=== PATIENT | male | born 1980 | race Caucasian/White ===

== ENCOUNTER 2022-07-17 08:58 | Emergency (ER) | payer OTHER ==
--- OUTSIDE RECORDS SUMMARY | 2022-07-17 09:02 | XMS REPORT | Continuity of Care Document ---
:1980 Author Organization [facility] t Address [address] [place] [address] Care Team Providers Name Role Phone [id number] A Primary Care Physician Unavailable Doctor Unassigned, [place] Attending Clinician Unavailable Grecia HODGE Attending Clinician Unavailable Grecia Weller Attending Clinician Megan Ordonez Attending Clinician MEGAN SALAS Attending Clinician Unavailable Jose Frank MD Attending Clinician JOSE FRANK Attending Clinician Unavailable RENETTA KELLEY Attending Clinician Unavailable Renetta Hopper Attending Clinician RENETTA KELLEY Admitting Clinician Unavailable Payers Payer Name Policy Type Policy Number Effective Date Expiration Date S ource Problems Condition Condition Condition Status Onset Resolution Last Treating Co mments Source Name Details Category Date Date Treatment Clinician Date Vision Vision Disease Active 2018-06 Univers loss of loss of 0-07 [place] of right [place] 00[place] [facility] Allergies, Adverse Reactions, Alerts Allergy Allergy Status Severity Reaction(s) Onset Inactive Treating Comm ents Source Name Type Date Date Clinician NO KNOWN Drug Active Univers ALLERGIE Class ity of S [facility] Social History Social Habit Start Date Stop Date Quantity Comments Source History [facility] o f Alcohol Frequency [facility] History [facility] o f Alcohol Std Drinks [facility] History [facility] o f Alcohol Binge [place] [facility] Exposure to Not sure [facility] SARS-CoV-2 (event) [facility] Tobacco use and 2020-10-14 2020-10-14 Never used Universit y of exposure 00:00:00 00:00:00 [facility] Alcohol intake 2020-10-14 2020-10-14 0 /d University of 00:00:00 00:00:00 [facility] Alcohol Comment 2016-03-27 2016-03-27 Occasionally Univers ity of 00:00:00 00:00:00 [facility] Sex [birth year] At [birth year] Universit y of 00:00:00 00:00:00 [facility] Smoking Status Start Date Stop Date Source Never smoker [facility] Medications Ordered Filled Start Stop Current Ordering Indication Dosage Frequency Signature Comments Components Source Medication Medication Date Date Medication? Clinician (SIG) Name Name famotidine 2021- No 40mg 40 mg, Univ ers (PEPCID AC) 08-05 Oral, ity of tablet 40 17:45: 16:48 [place]CE, [place] dose, On Medical Sat Branch 08/05/21 at 1145, SERGIO methylpredn 2021- No 125mg 125 mg, U nivers isolone sod 08-05 Intramuscu i ty of succ 17:45: 16:48 lar, ONCE, [place] (SOLU-MEDRO 00 :00 1 dose, On Me dical L) Sat Branch injection 08/05/21 at 125 mg 1145, STAT famotidine Yes [id number] 40mg Take 1 U nivers (PEPCID) 40 2-12 tablet by ity of mg tablet 00:00: mouth [place] 00 daily. Medical Branch famotidine Yes [id number] 40mg Take 1 U nivers (PEPCID) 40 2-12 tablet by ity of mg tablet 00:00: mouth [place] 00 daily. Medical Branch predniSONE 2021- No [id number] Take 2 Univers 10 mg 08-05 tablets by ity of tablet 00:00: 05:59 mouth 2 [place] 00 :00 (two) Medical times Branch daily for 5 days, THEN 1 tablet 2 (two) times daily for 5 days, THEN 1 tablet daily for 5 days. amoxicillin 2020- No 1{tbl} Take 1 U nivers -clavulanat 3-05 03-16 tablet by it y of e 00:00: 04:59 mouth 2 [place] (AUGMENTIN) 00 :00 (two) Medical 875-125 mg times Branch per tablet daily for 10 days. amoxicillin 2020- No 1{tbl} Take 1 U nivers -clavulanat 3-05 03-16 tablet by it y of e 00:00: 04:59 mouth 2 [place] (AUGMENTIN) 00 :00 (two) Medical 875-125 mg times Branch per tablet daily for 10 days. amoxicillin 2020- No 1{tbl} Take 1 U nivers -clavulanat 3-05 03-16 tablet by it y of e 00:00: 04:59 mouth 2 [place] (AUGMENTIN) 00 :00 (two) Medical 875-125 mg times Branch per tablet daily for 10 days. amoxicillin 2020- No 1{tbl} Take 1 U nivers -clavulanat 3-05 03-16 tablet by it y of e 00:00: 04:59 mouth 2 [place] (AUGMENTIN) 00 :00 (two) Medical 875-125 mg times Branch per tablet daily for 10 days. amoxicillin 2020- No 1{tbl} Take 1 U nivers -clavulanat 3-05 03-16 tablet by it y of e 00:00: 04:59 mouth 2 [place] (AUGMENTIN) 00 :00 (two) Medical 875-125 mg times Branch per tablet daily for 10 days. tetanus-dip 2020- No .5mL 0.5 mL, Un darrius htheria 08-23 Intramuscu ity o f toxoids 00:00: 23:02 lar, ONCE, [place] as (TENIVAC) 00 :00 1 dose, Medical 5-2 Lf 08/22/20 Branch unit/0.5 mL at 1800, injection Routine 0.5 mL ibuprofen 2020- No 800mg 800 mg, Uni vers (IBU) 08-23 Oral, ity of tablet 800 00:00: 23:02 ONCE, 1 [place] mg 00 :00 dose, Mon Medical 08/22/20 at Branch 1800, SERGIO ibuprofen 2020-0 Yes [id number] 800mg Take 1 Univers 800 mg 3-01 [id number] tablet by ity of tablet 00:00: mouth [place] 00 every 8 Medical (eight) Branch hours as needed for Pain (scale 4-6). ibuprofen 2020-0 Yes [id number] 800mg Take 1 Univers 800 mg 3-01 [id number] tablet by ity of tablet 00:00: mouth [place] 00 every 8 Medical (eight) Branch hours as needed for Pain (scale 4-6). ibuprofen 2020-0 Yes [id number] 800mg Take 1 Univers 800 mg 3-01 [id number] tablet by ity of tablet 00:00: mouth [place] 00 every 8 Medical (eight) Branch hours as needed for Pain (scale 4-6). ibuprofen 2020-0 Yes [id number] 800mg Take 1 Univers 800 mg 3-01 [id number] tablet by ity of tablet 00:00: mouth [place] 00 every 8 Medical (eight) Branch hours as needed for Pain (scale 4-6). ibuprofen 2020-0 Yes [id number] 800mg Take 1 Univers 800 mg 3-01 [id number] tablet by ity of tablet 00:00: mouth [place] 00 every 8 Medical (eight) Branch hours as needed for Pain (scale 4-6). ibuprofen 2020-0 Yes [id number] 800mg Take 1 Univers 800 mg 3-01 [id number] tablet by ity of tablet 00:00: mouth [place] 00 every 8 Medical (eight) Branch hours as needed for Pain (scale 4-6). ibuprofen 2020-0 Yes [id number] 800mg Take 1 Univers 800 mg 3-01 [id number] tablet by ity of tablet 00:00: mouth [place] 00 every 8 Medical (eight) Branch hours as needed for Pain (scale 4-6). ibuprofen 2020-0 Yes [id number] 800mg Take 1 Univers 800 mg 3-01 [id number] tablet by ity of tablet 00:00: mouth [place] 00 every 8 Medical (eight) Branch hours as needed for Pain (scale 4-6). ibuprofen 2020-0 Yes [id number] 800mg Take 1 Univers 800 mg 3-01 [id number] tablet by ity of tablet 00:00: mouth [place] 00 every 8 Medical (eight) Branch hours as needed for Pain (scale 4-6). ibuprofen 2020-0 Yes [id number] 800mg Take 1 Univers 800 mg 3-01 [id number] tablet by ity of tablet 00:00: mouth [place] 00 every 8 Medical (eight) Branch hours as needed for Pain (scale 4-6). ibuprofen 2020-0 Yes [id number] 800mg Take 1 Univers 800 mg 3-01 [id number] tablet by ity of tablet 00:00: mouth [place] 00 every 8 Medical (eight) Branch hours as needed for Pain (scale 4-6). ibuprofen 0 Yes [id number] 800mg Take 1 Univers 800 mg 3-01 [id number] tablet by ity of tablet 00:00: mouth [place] 00 every 8 Medical (eight) Branch hours as needed for Pain (scale 4-6). ibuprofen 2020-0 Yes [id number] 800mg Take 1 Univers 800 mg 3- [id number] tablet by ity of tablet 00:00: mouth [place] 00 every 8 Medical (eight) Branch hours as needed for Pain (scale 4-6). acetaminoph 2020- No [id number] 1{tbl} Take 1 U nivers en-codeine -06 26- tablet by ity of 300-30 mg 00:00: 05:59 mouth [place] tablet 00 :00 every 6 Medical (six) Branch hours as needed for Pain (scale 7-10) for up to 7 days. Indication s: acute pain acetaminoph 2020- No 4647 1{tbl} Take 1 U nivers en-codeine 3-06 26- tablet by ity of 300-30 mg 00:00: 05:59 mouth [place] tablet 00 :00 every 6 Medical (six) Branch hours as needed for Pain (scale 7-10) for up to 7 days. Indication s: acute pain acetaminoph 2020-2020- No 4647 1{tbl} Take 1 U nivers en-codeine 3-06 26-09 tablet by ity of 300-30 mg 00:00: 05:59 mouth [place] tablet 00 :00 every 6 Medical (six) Branch hours as needed for Pain (scale 7-10) for up to 7 days. Indication s: acute pain acetaminoph 2020- No 4647 1{tbl} Take 1 U nivers en-codeine 3-06 26-09 tablet by ity of 300-30 mg 00:00: 05:59 mouth [place] tablet 00 :00 every 6 Medical (six) Branch hours as needed for Pain (scale 7-10) for up to 7 days. Indication s: acute pain diclofenac 2018-06 Yes [id number] 50mg Take 1 Univers 50 mg EC 0-07 tablet by ity of tablet 00:00: mouth (two) Medical times Branch daily with meals as needed for Pain or Inflammati on. Take with food. diclofenac 2018-06 Yes [id number] 50mg Take 1 Univers 50 mg EC 0-07 tablet by ity of tablet 00:00: mouth (two) Medical times Branch daily with meals as needed for Pain or Inflammati on. Take with food. diclofenac 2018-06 Yes [id number] 50mg Take 1 Univers 50 mg EC 0-07 tablet by ity of tablet 00:00: mouth (two) Medical times Branch daily with meals as needed for Pain or Inflammati on. Take with food. diclofenac 2018-06 Yes [id number] 50mg Take 1 Univers 50 mg EC 0-07 tablet by ity of tablet 00:00: mouth (two) Medical times Branch daily with meals as needed for Pain or Inflammati on. Take with food. diclofenac 2018-06 Yes [id number] 50mg Take 1 Univers 50 mg EC 0-07 tablet by ity of tablet 00:00: mouth (two) Medical times Branch daily with meals as needed for Pain or Inflammati on. Take with food. diclofenac 2018-06 Yes [id number] 50mg Take 1 Univers 50 mg EC 0-07 tablet by ity of tablet 00:00: mouth (two) Medical times Branch daily with meals as needed for Pain or Inflammati on. Take with food. diclofenac 2018-06 Yes [id number] 50mg Take 1 Univers 50 mg EC 0-07 tablet by ity of tablet 00:00: mouth (two) Medical times Branch daily with meals as needed for Pain or Inflammati on. Take with food. diclofenac 2018-06 Yes [id number] 50mg Take 1 Univers 50 mg EC 0-07 tablet by ity of tablet 00:00: mouth (two) Medical times Branch daily with meals as needed for Pain or Inflammati on. Take with food. diclofenac 2018-06 Yes [id number] 50mg Take 1 Univers 50 mg EC 0-07 tablet by ity of tablet 00:00: mouth 2 (two) Medical times Branch daily with meals as needed for Pain or Inflammati on. Take with food. diclofenac 2018-06 Yes [id number] 50mg Take 1 Univers 50 mg EC 0-07 tablet by ity of tablet 00:00: mouth 2 (two) Medical times Branch daily with meals as needed for Pain or Inflammati on. Take with food. diclofenac 2018-06 Yes [id number] 50mg Take 1 Univers 50 mg EC 0-07 tablet by ity of tablet 00:00: mouth 2 (two) Medical times Branch daily with meals as needed for Pain or Inflammati on. Take with food. diclofenac 2018-06 Yes [id number] 50mg Take 1 Univers 50 mg EC 0-07 tablet by ity of tablet 00:00: mouth 2 (two) Medical times Branch daily with meals as needed for Pain or Inflammati on. Take with food. diclofenac 2018-06 Yes [id number] 50mg Take 1 Univers 50 mg EC 0-07 tablet by ity of tablet 00:00: mouth 2 (two) Medical times Branch daily with meals as needed for Pain or Inflammati on. Take with food. Immunizations Ordered Filled Immunization Date Status Comments [facility] Immunization Name Name Td 2020-08-22 Completed University of 00:00:00 [facility] Td 2020-08-22 Completed University of 00:00:00 [facility] Td 2020-08-22 Completed University of 00:00:00 [facility] Td 2020-08-22 Completed University of 00:00: [facility] Td 2020-08-22 Completed University of 00:00:00 [facility] Td 2020-08-22 Completed University of 00:00:00 [facility] Td 2020-08-22 Completed University of 00:00:00 [facility] Td 2020-08-22 Completed University of 00:00:00 [facility] Td 2020-08-22 Completed University of 00:00:00 [facility] Td 2020-08-22 Completed University of 00:00:00 [facility] Td 2020-08-22 Completed University of 00:00:00 [facility] Td 2020-08-22 Completed University of 00:00:00 [place] [facility] Td 2020-08-22 Completed University of 00:00:00 [facility] Vital Signs Vital Name Observation Time Observation Value Comments Source Systolic blood 2021-08-05 15:27:00 119 mm[Hg] Univer sity of pressure [facility] Branch Diastolic blood 2021-08-05 15:27:00 82 mm[Hg] Unive rsity of pressure [facility] Branch Heart rate 2021-08-05 15:27:00 84 /min Universi ty of [facility] Body temperature 2021-08-05 15:27:00 35.78 Corrie Univ ersity of [facility] Branch Respiratory rate 2021-08-05 15:27:00 16 /min Univ ersity of [facility] Body height 2021-08-05 15:27:00 185.4 cm Universi ty of [facility] Body weight 2021-08-05 15:27:00 108.863 kg Universi ty of [place] [facility] BMI 2021-08-05 15:27:00 31.66 kg/m2 Universi ty of [facility] Branch Oxygen saturation in 2021-08-05 15:27:00 98 /min University of Arterial blood by [facility] Pulse oximetry Branch Systolic blood 2020-10-14 13:13:00 119 mm[Hg] Univer sity of pressure [facility] Branch Diastolic blood 2020-10-14 13:13:00 81 mm[Hg] Unive rsity of pressure [facility] Heart rate 2020-10-14 13:13:00 66 /min Universi ty of [place] [facility] Body height 2020-10-14 13:13:00 182.9 cm Universi ty of [place] [facility] Body weight 2020-10-14 13:13:00 108.863 kg Universi ty of [place] [facility] BMI 2020-10-14 13:13:00 32.55 kg/m2 Universi ty of [facility] Systolic blood 2020-09-02 14:56:00 125 mm[Hg] Univer sity of pressure [facility] Branch Diastolic blood 2020-09-02 14:56:00 85 mm[Hg] Unive rsity of pressure [facility] Branch Heart rate 2020-09-02 14:56:00 80 /min Universi ty of [facility] Respiratory rate 2020-09-02 14:56:00 18 /min Univ ersity of [facility] Body height 2020-09-02 14:56:00 182.9 cm Universi ty of [facility] Body weight 2020-09-02 14:56:00 108.863 kg Universi ty of [facility] BMI 2020-09-02 14:56:00 32.55 kg/m2 Universi ty of [facility] Body height 2020-08-26 15:40:00 182.9 cm Universi ty of [facility] Body weight 2020-08-26 15:40:00 108.863 kg Universi ty of [facility] BMI 2020-08-26 15:40:00 32.55 kg/m2 Universi ty of [facility] Systolic blood 2020-08-26 15:40:00 132 mm[Hg] Univer sity of pressure [facility] Diastolic blood 2020-08-26 15:40:00 89 mm[Hg] Unive rsity of pressure [facility] Systolic blood 2020-08-23 00:00:00 138 mm[Hg] Univer sity of pressure [facility] Diastolic blood 2020-08-23 00:00:00 88 mm[Hg] Unive rsity of pressure [facility] Heart rate 2020-08-23 00:00:00 79 /min Universi ty of [facility] Body temperature 2020-08-23 00:00:00 36.72 Corrie [facility] Respiratory rate 2020-08-23 00:00:00 18 /min [facility] Oxygen saturation in 2020-08-23 00:00:00 98 /min [facility] Arterial blood by [facility] Pulse oximetry Branch Body height 2020-08-22 22:48:00 182.9 cm Universi ty of [facility] Body weight 2020-08-22 22:48:00 108.863 kg Universi ty of [facility] BMI 2020-08-22 22:48:00 32.55 kg/m2 Universi ty of [facility] Procedures Procedure Date / Time Performing Clinician Source Performed MEDICATION CORRESPONDENCE 2021-08-30 06:01:00 Doctor Unassigned, [facility] [place] [facility] NOTICE OF PRIVACY 2021-08-05 15:25:55 Doctor Margy, [facility] [place] [facility] CONSENT/REFUSAL FOR 2021-08-05 15:22:10 [facility] DIAGNOSIS AND TREATMENT [place] [facility] XR TOES 2 VW LEFT 2020-10-14 13:24:00 Megan Salas [facility] XR TOES 2 VW LEFT 2020-09-02 15:08:35 Megan Salas [facility] XR FOOT 3+ VW LEFT 2020-08-22 23:06:16 [facility] 2020-08-22 22:36:41 Doctor Margy [facility] [place] [facility] [place] CONSENT/REFUSAL FOR 2020-08-22 22:36:20 Doctor Margy [facility] DI[facility] AND TREAT[facility] [place] [facility] Encounters Start End Encounter Admission Attending Care Care Encounter Source Date/Time Date/Time Type Type Clinicians Facility Department ID 2021-08-30 2021-08-30 Orders Doctor STACY 1.2.840.114 [id number] Univers 00:00:00 00:00:00 Only Unassigned, [place] 350.1.13.10 ity of [place] [facility] 4.2.7.2.686 [place] as [id number] [facility] 009 Branch 2021-08-05 2021-08-05 Emergency X Grecia HODGE [facility] ERT [id number] Univers 09:29:00 11:09:00 ity of [facility] 2021-08-05 2021-08-05 Emergency Grecia Hodge [facility] 1.2.840.114 [id number] Univers 09:29:00 11:09:00 Blossom FREEMAN 350.1.13.10 i ty [facility] 4.2.7.2.686 [place] [facility] [id number] [facility] 084 Branch 2021-08-05 2021-08-05 Orders Doctor STACY 1.2.840.114 [id number] Univers 00:00:00 00:00:00 Only Unassigned, [place] 350.1.13.10 ity of [place] [facility] 4.2.7.2.686 [place] [id number] [address] 2020-10-14 2020-10-14 [facility] 1.2.840.114 [id number] Univers 08:23:59 23:59:00 Encounter [facility] [id number] ity of Surgical 4.2.7.2.686 [place] Specialti [id number] Me dical es [address] [facility] 2020-10-14 2020-10-14 Office [facility] 1.2.840.114 [id number] Univers 08:00:25 08:15:25 Visit [facility] [id number] it y of Surgical 4.2.7.2.686 [place] Specialti [id number] Nj dical es [address] [facility] 2020-10-14 2020-10-14 [id number] Univers 08:00:00 08:00:00 [facility] 2020-10-14 2020-10-14 [facility] [id number] Univers 08:00:00 08:00:00 [facility] 2020-09-02 2020-09-02 [facility] 1.2.840.114 [id number] Univers 09:08:34 23:59:00 Encounter [facility] [id number] ity of Surgical 4.2.7.2.686 [place] Specialti [id number] Nj dical es 8[address] [facility] 2020-09-02 2020-09-02 [facility] [id number] Univers 09:08:34 23:59:00 [facility] 2020-09-02 2020-09-02 Office Megan Salas [facility] 1.2.840.114 [id number] Univers 08:55:04 09:10:04 Visit FrankJose jimenez [facility] [id number] ity of Surgical 4.2.7.2.686 [place] Specialti [id number] Nj dical es [address] [facility] 2020-08-26 2020-08-26 Office [facility] [id number] Univers 09:29:31 10:07:49 Visit Jose Lucas [facility] [id number] it y of Surgical 4.2.7.2.686 [place] Specialti [id number] Nj dical es [address] [facility] 2020-08-26 2020-08-26 Outpatient R [facility] [id number] Univers 09:30:00 09:30:00 JOSE glass [facility] 2020-08-23 2020-08-23 Telephone [facility] 1.2.840.114 [id number] Univers 00:00:00 00:00:00 Jose Lucas [facility] [id number] it y of Surgical 4.2.7.2.686 [place] Specialti [id number] Nj dical es [address] [facility] 2020-08-22 2020-08-22 Emergency X [facility] ERT [id number] Univers 16:59:00 18:49:00 RENETTA frandy [facility] 2020-08-22 2020-08-22 Emergency [facility] 1.2.840.114 [id number] Univers 16:59:00 18:49:00 [facility] [id number] i ty of [place] 4.2.7.2.686 [facility] [id number] [address] Results Test Description Test Time Test Comments Results Result Sour e Comments XR TOES 2 VW LEFT 2020-10-14 Great toe tuft Uni versity of 13:52:38 fracture in [facility] acceptable Branch alignment showing signs of callus formation XR TOES 2 VW LEFT 2020-09-02 Comminuted tuft Un iversity of 15:35:07 fracture in [facility] Branch alignment the small linear lucencies at the proximal portion of the distal phalanx that are intra-articular are nondisplaced. ? XR FOOT 3+ VW 2020-08-22 Comminuted University of LEFT 23:49:50 great toe [facility] Branch phalangeal fracture. Preliminary Report Dictated by Resident: Jeffery Nolen I, Mynor Mcneal MD., have reviewed this study and agree with the abovereport.EXAM : XR FOOT 3+ VW LEFT HISTORY: pain, swelling COMPARISON: None FINDINGS: Images of the left foot demonstrate a comminuted fracture of the great toeterminal phalanx with mild surrounding and dorsal forefoot soft tissueswelling. [facility], Radiant Results Inft User - 08/22/2020 5:50 PM CSTEXAM: XR FOOT 3+ VW LEFTHISTORY: pain, swelling COMPARISON: NoneFINDINGS:Alyx ges of the left foot demonstrate a comminuted fracture of the great toeterminal phalanx with mild surrounding and dorsal forefoot soft tissueswelling.I MPRESSIONComminu adrianna great toe terminal phalangeal fracture.Prelimi nary Report Dictated by Resident: Jeffery Garcia, Mynor Mcneal MD., have reviewed this study and agree with the abovereport.
[2022-07-17] MEDS ORDERED: TDAP (DIPHTH,PERTUSS(ACELL),TET VAC) 0.5 ML VIAL IMVAC ONE (09:34)
--- NOTE | 2022-07-17 09:56 | RAD REPORT ---
EXAM DESCRIPTION: RAD - Forearm Right - 07/17/2022 9:47 am CLINICAL HISTORY: PAIN, fall from ladder COMPARISON: No comparisons FINDINGS: No fracture is identified. There is no dislocation or periosteal reaction noted. Degenerat kareen changes are present at the articulation of the humerus with the radial head. Degenerative periart icular calcifications are seen. Contusion and edema changes are present in the soft tissues of the distal forearm. IMPRESSION: Distal left forearm contusion change with no fracture.
--- NOTE | 2022-07-17 10:26 | EDPHYS ---
Physician Documentation [facility] Name: Constantine Salas Age: 41 yrs Sex: Male : 1980 Arrival Date: 07/17/2022 Time: 09:04 Bed IW4 Private MD: ED Physician Aaron Osorio HPI: 07/17 09:57 This 41 yrs old Male presents to ER via Ambulatory with complaints of Fall Injury - kb 5ft, Arm Injury. 09:57 The patient or guardian complains of an abrasion, pain, swelling, tenderness. The kb complaints affect the right forearm. Context: The problem was sustained at work, resulted from a fall, slipped off ladder. Onset: The symptoms/episode began/occurred just prior to arrival. Treatment prior to arrival includes: no previous treatment. Modifying factors: The symptoms are alleviated by nothing. the symptoms are aggravated by nothing. Associated signs and symptoms: Pertinent positives: pain, swelling. Severity of symptoms: At their worst the symptoms were mild, moderate, in the emergency department the symptoms are unchanged. The patient has not experienced similar symptoms in the past. The patient has not recently seen a physician. Pt reports he fell approx 5 ft from ladder due to slipping. Reports pain and swelling to right forearm, abrasions to right hand and right hernandez. Denies loc, hitting head, any other injuries/pain. . Historical: - Allergies: 09:27 No Known Allergies; ss - Home Meds: 09:27 None [Active]; ss - PMHx: 09:27 None; ss - Immunization history:: Last tetanus immunization: unknown. ROS: 09:56 Constitutional: Negative for fever, chills, and weight loss. kb 09:56 MS/extremity: Positive for pain, swelling, tenderness, of the right forearm. 09:56 All other systems are negative. Exam: 09:56 Constitutional: This is a well developed, well nourished patient who is awake, alert, kb and in no acute distress. Head/Face: Normocephalic, atraumatic. ENT: Moist Mucous membranes Cardiovascular: Regular rate and rhythm with a normal S1 and S2. No gallops, murmurs, or rubs. No pulse deficits. Respiratory: Respirations even and unlabored. No increased work of breathing. Talking in full sentences Abdomen/GI: Soft, non-tender. No distention Neuro: Awake and alert, GCS 15, oriented to person, place, time, and situation. Moves all extremities. Normal gait. 09:56 Musculoskeletal/extremity: Extremities: grossly normal except: noted in the right forearm: pain, swelling, tenderness, ROM: intact in all extremities, Circulation is intact in all extremities. Sensation intact. 09:56 Skin: injury, abrasion(s), small abrasion noted, of the right hand and right hernandez. Vital Signs: 09:27 BP 118 / 64; Pulse 72; Resp 16; Temp 99.0(TE); Pulse Ox 99% on R/A; Weight 108.86 kg; ss Height 6 ft. 0 in. (182.88 cm); Pain 310; 09:27 Body Mass Index 32.55 (108.86 kg, 182.88 cm) ss MDM: 09:28 Patient medically screened. kb 09:54 Data reviewed: vital signs, nurses notes. kb 09:54 Differential diagnosis: closed fracture, contusion, hematoma. kb 10:04 I considered the following discharge prescriptions or medication management in the emergency department I discussed and recommended Over The Counter medications, Pain Medications: At this time, prescription pain medications are not recommended. Counseling: I had a detailed discussion with the patient and/or guardian regarding: the historical points, exam findings, and any diagnostic results supporting the discharge/admit diagnosis, radiology results, the need for outpatient follow up, a family practitioner, to return to the emergency department if symptoms worsen or persist or if there are any questions or concerns that arise at home. 07/17 09:29 Order name: Forearm Right XRAY 07/17 09:29 Order name: Ice pack; Complete Time: 09:31 kb Administered Medications: 09:37 Drug: Boostrix Tdap 0.5 ml {Note: LOT HF2YA 01/05/23.} Route: IM; Site: left deltoid; ss Disposition: 18:45 Co-signature as Attending Physician, Aaron Osorio DO I reviewed the patient's care ms3 provided by the Advanced Practice Provider and agree with the diagnosis and treatment plan. Disposition Summary: 07/17/22 10:07 Discharge Ordered Location: Home Condition: Stable kb Diagnosis - Fall (on) (from) other stairs and steps - ladder kb - Contusion of right forearm kb - Abrasion of right hand kb - Abrasion of lower leg kb Followup: kb - With: Emergency Department - When: As needed - Reason: Worsening of condition Followup: kb - With: Private Physician - When: 2 - 3 days - Reason: Recheck today's complaints, Continuance of care, Re-evaluation by your physician Discharge Instructions: - Discharge Summary Sheet kb - Contusion, [id number] kb - Abrasion, [id number] kb Forms: - Medication Reconciliation Form kb - Thank You Letter kb - Antibiotic Education kb - Prescription Opioid Use kb - Work release form ss Signatures: Dispatcher [employer] EDMS Susanna Mcnamara, TOOL CHASER-C JENNIFER-Jade Fitzpatrick, OLGA RN ss Aaron Osorio, DO ms3
--- NOTE | 2022-07-17 10:26 | ER ---
Nurse's Notes [facility] Name: Constantine Salas Age: 41 yrs Sex: Male : 1980 Arrival Date: 07/17/2022 Time: 09:04 Bed IW4 Private MD: Diagnosis: Fall (on) (from) other stairs and steps-ladder;Contusion of right forearm;Abrasion of right hand;Abrasion of lower leg Presentation: 07/17 09:25 Chief complaint: Patient states: R FA pain/ swelling after falling approximately 5 feet ss off of ladder. Coronavirus screen: Client denies travel out of the [place] in the last 14 days. Ebola Screen: Patient denies exposure to infectious person. Patient denies travel to an Ebola-affected area in the 21 days before illness onset. Initial Sepsis Screen: Does the patient meet any 2 criteria? No. Patient's initial sepsis screen is negative. Does the patient have a suspected source of infection? No. Patient's initial sepsis screen is negative. Risk Assessment: Do you want to hurt yourself or someone else? Patient reports no desire to harm self or others. Onset of symptoms was July 17, 2022. 09:25 Method Of Arrival: Ambulatory ss 09:25 Acuity: SONG 4 Historical: - Allergies: : No Known Allergies; ss - Home Meds: : None [Active]; ss - PMHx: : None; ss - Immunization history:: Last tetanus immunization: unknown. Assessment: 10:16 Reassessment: Patient appears in no apparent distress at this time. Patient and/or ss family updated on plan of care and expected duration. Pain level reassessed. Patient is alert, oriented x 3, equal unlabored respirations, skin warm/dry/pink. Vital Signs: 09: BP 118 / 64; Pulse 72; Resp 16; Temp 99.0(TE); Pulse Ox 99% on R/A; Weight 108.86 kg; ss Height 6 ft. 0 in. (182.88 cm); Pain 3/10; : Body Mass Index 32.55 (108.86 kg, 182.88 cm) ED Course: 09:04 Patient arrived in ED. as 09:08 Susanna Mcnamara FNP-C is PHCP. kb 09:08 Aaron Osorio DO is Attending Physician. kb 09:27 Triage completed. ss 09:27 Arm band placed on right wrist. ss 10:16 No provider procedures requiring assistance completed. Patient did not have IV access ss during this emergency room visit. 10:25 Forearm Right XRAY In Process Unspecified. EDMS Administered Medications: 09:37 Drug: Boostrix Tdap 0.5 ml {Note: LOT HF2YA 01/05/23.} Route: IM; Site: left deltoid; ss Outcome: 10:07 Discharge ordered by MD. kb 10:16 Discharged to home ambulatory. ss 10:16 Condition: good 10:16 Discharge instructions given to patient, Instructed on discharge instructions, follow up and referral plans. Demonstrated understanding of instructions, follow-up care, medications, Prescriptions given X 10:17 Patient left the ED. ss Signatures: Dispatcher [employer] EDMS Susanna Mcnamara, Katiuska Mendoza Shelby, OLGA RN ss
== END 2022-07-17 10:17 | disposition home or self-care (01) ==
LOC: ER 08:58
DX: S60.511A Abrasion of right hand, initial encounter (principal); S80.811A Abrasion, right lower leg, initial encounter; S50.11XA Contusion of right forearm, initial encounter; W11.XXXA Fall on and from ladder, initial encounter
CPT/HCPCS: 96372; 99283